=== PATIENT | male | born 1940 | race Caucasian/White ===

== ENCOUNTER 2016-05-22 19:57 | Inpatient (IN) | payer MEDICARE, BC ==
[~2016-05-22] VITALS: Ht 185.4 cm; Wt 74.0 kg
[~2016-05-22 19:57] MED LIST: ARICEPT10 MG PO; ASA325 MG PO; COREG DPS3.125 MG PO; DAPSONE25 MG PO; FLOMAX DPS0.4 MG PO; MAALOX DPS30 ML PO; MELATONIN5 M2 PO; MICRO-K DPS10 MEQ PO; NITROSTAT0.4 MG SL; NORVASC5 MG PO; PRAVACHOL20 MG PO; PRILOSEC40 MG PO; SYNTHROID25 MCG PO; SYNTHROID50 MCG PO; THERA1 EACH PO; TOPAMAX100 MG PO; TOPAMAX50 MG PO; TYLENOL DPS325 MG PO; VIBRAMYCIN-DPS100 M2 PO; VIMPAT50 MG PO; VITAMIN B-121000 MCG PO; ZYRTEC DPS10 MG PO
--- NOTE | 2016-05-23 01:06 | ER ---
ADMIT: 05/22/2016 RM/LOC: 519 [facility] MR#: [id number] [id number] [place], [place] [address] GWEN WILCOX [address] [place] [address] Emergency Room Report SEX: M AGE: 75 : 1940 DATE: 05/22/2016 CHIEF COMPLAINT: Weakness. HISTORY OF PRESENT ILLNESS: The patient is a 75-year-old male with dementia, CVA, with left-sided residual weakness, type 2 diabetes, valvular heart disease, abdominal aortic aneurysm with fistula and chronic E. coli sepsis on chronic dapsone therapy and multiple antibiotic allergies. Family states he is increasingly weak, bed ridden with cough. PAST MEDICAL HISTORY: ILLNESSES: Type 2 diabetes, valvular heart disease with aortic regurg, mitral regurg, hypertension, dementia, CVA with left-sided weakness, seizure disorder, hyperlipidemia, E. coli sepsis, chronic antibiotic therapy with dapsone, abdominal aortic repair and fistula, dementia, chronic kidney disease, obstructive sleep apnea, bladder cancer, hypothyroidism, GERD, chronic UTIs. OPERATIONS: Aortic aneurysm repair, right carotid endarterectomy, cholecystectomy, heart cath in 2002 with no interventions or abnormalities found. ALLERGIES: QUINOLONES, PERCOCET, PENICILLIN, CEPHALOSPORINS, CARBAPENEM. MEDICATIONS: Please see nurse's MAR. SOCIAL HISTORY: , retired, smokes half pack per day or less. No illicit drugs or alcohol. FAMILY HISTORY: Negative per chart review. REVIEW OF SYSTEMS: Unreliable due to dementia. PHYSICAL EXAMINATION: VITAL SIGNS: Temp 98.7, pulse 60, respirations 14, BP 143/59, SaO2 of 94%. GENERAL: Lethargic, slow to respond. Disheveled without jaundice or icterus. HEENT: Normocephalic. No evidence of epistaxis, rhinorrhea, or otorrhea. NECK: Supple without lymphadenopathy or thyromegaly. CHEST: Clear. Breath sounds equal without rales, rhonchi, or wheeze. HEART: Regular rate and rhythm without murmur, gallop, or edema. ABDOMEN: Soft, nontender, nondistended without mass or megaly. Bowel sounds active. BACK: No CVA tenderness. EXTREMITIES: No evidence of Homans sign, synovitis, or dermatitis. NEURO: EOMI, PERRLA. No evidence of drift, dysarthria, or ataxia. Gait not assessed. MENTAL STATUS: Alert, slow to respond, at times inappropriate. MEDICAL DECISION MAKING: Chest x-ray, no acute findings. CT head shows no acute findings. CT abdomen and pelvis shows likely basilar pneumonia. Vascular changes of aorta, but no acute findings. Hemoglobin 11.2, platelets ADMIT: 05/22/2016 RM/LOC: 519 [facility] MR#: [id number] [address] [id number] [place] [address] [address] [place] [address] Emergency Room Report SEX: M AGE: 75 : 1940 122, lactic 0.9. CRP 7.5, creatinine 1.6, baseline 1.1. BNP 1655, troponin 0.034, CK 461, procalcitonin 1.74. UA; 2+ WBC, less than 1 RBC, 1+ protein. EKG showed sinus bradycardia without ST-T or Q-wave change. CT head, no acute findings except possible left sphenoid and mastoid air-fluid levels. The patient was given 1 L bolus Azactam in emergency department. Notified Dr. Castillo of admission, who agreed and gave orders to nursing staff. DIAGNOSES: 1. Bibasilar pneumonia. 2. Multiple antibiotic allergies. 3. Acute kidney injury, likely prerenal azotemia. 4. Chronic sinusitis. 5. Dementia. RECOMMENDATION: Admit inpatient telemetry for Dr. Garcia. ADMISSION/DISCHARGE CONDITION: Fair. Patient is a full code. Wander Dang MD/ alejandro JOB #: [id number] CC: Nikita Garcia MD, Attending Physician Nikita Garcia MD, Family Physician Nikita Garcia MD
[2016-05-27] MEDS ORDERED: PRAVACHOL20 MG PO (17:07)
[2016-05-27] MEDS ORDERED: DESYREL-DPS50 MG PO (17:07)
[2016-05-27] MEDS ORDERED: NORVASC DPS10 MG PO (17:07)
[2016-05-27] MEDS ORDERED: DUONEB DPS3 ML IH (17:10)
[2016-05-27] MEDS ORDERED: DELTASONE DPS20 MG (17:10)
[2016-05-27] MEDS ORDERED: VIBRAMYCIN-DPS100 M2 PO (17:11)
[2016-05-27] MEDS ORDERED: HABITROL TP (17:11)
--- NOTE | 2016-06-01 10:19 | HP ---
ADMIT: 05/22/2016 RM/LOC: 519 [facility] MR#: [id number] [id number] [place], [place] [address] GWEN WILCOX [address] [place] [address] History and Physical SEX: M AGE: 75 : 1940 DATE OF SERVICE: CHIEF COMPLAINT: Weakness, increased shortness of breath, and cough. CLINICAL HISTORY: The patient is a very debilitated 75-year-old male with advanced vascular dementia with history of previous CVA, who has been residing at home with his attempting to provide his care. The patient was last hospitalized in May of 2015 after having had a seizure episode. At that time, it was felt that he needed mcc placement, but neither he or his would agree with mcc placement, and he has been at home, progressively deteriorating over the past year. The patient does have significant history of advanced COPD and continues to smoke. He has significant confusion and disorientation, and his struggles with his cares at home because of his advanced dementia. He has progressed to the point that he can no longer self transfer and his is not strong enough to transfer him. He also, in the last week to 10 days, has been coughing and having increased chest congestion. His has been ill with a respiratory infection and she feels that she gave her current respiratory infection to her . Because of his severe debility and inability to be cared for at home as well as his worsening cough and dyspnea, he was brought to the emergency room. He was evaluated in the ER for his weakness and debility. His workup in the ER included a CBC, which showed his white count to be normal at 8600, hemoglobin was 11.2. His sepsis studies were negative with a procalcitonin of 1.74 and a lactic acid of 0.9. A CT of his head showed chronic changes of small vessel disease and cerebrovascular disease as well as an old CVA. CT of the abdomen and pelvis showed no significant intraabdominal pathology, but he was noted to have bibasilar consolidations on his chest CT consistent with pneumonia. His chest x-ray did show marked changes of COPD with emphysematous changes and some fibrotic scarring in both bases, but pneumonia was noted on his CT scan. In view of his pneumonia with COPD exacerbation and marked debility, it was felt best to admit at this time. PAST MEDICAL HISTORY: The patient has history of significant vascular dementia. Other medical problems include: 1. Seizure disorder. 2. Multiple prior strokes. 3. Hypertension. 4. Chronic kidney disease. 5. Obstructive sleep apnea. 6. Prior bladder cancer. 7. History of recurring bouts of E. coli urosepsis related to chronic prostatitis. 8. Hypothyroidism. 9. Hyperlipidemia. 10.Chronic GERD. PAST SURGICAL HISTORY: The patient's previous surgical procedures include abdominal aortic aneurysm repair. He also has had carotid endarterectomy, cholecystectomy, upper GI endoscopy, and removal of a soft tissue tumor from ADMIT: 05/22/2016 RM/LOC: 519 [facility] MR#: [id number] [address] [address] [facility] [place] [address] History and Physical SEX: M AGE: 75 : 1940 his left anterior chest wall with subsequent chest wall defect and partial rib resection. The history is obtained from old records since the patient himself is entirely unreliable historian, and his is unavailable to provide any useful history. SOCIAL HISTORY: The patient is disabled. He has been living at home with his attempting to provide his care. The patient still smokes up to a pack a day of cigarettes. No longer consumes alcohol. No history of illicit drug use. FAMILY HISTORY: Unobtainable at this time. CURRENT MEDICATIONS: 1. Norvasc 5 mg daily. 2. Zyrtec 10 mg daily. 3. ASA 5 grains one daily. 4. Dapsone 25 mg daily. 5. Aricept 10 mg daily. 6. Multivitamin 1 daily. 7. Omeprazole 40 mg daily. 8. Potassium 10 mEq b.i.d. 9. Pravastatin 20 mg at bedtime. 10.Tamsulosin ER 0.4 mg daily at bedtime. 11.Levothyroxine 25 mcg daily. 12.Trazodone 50 mg half to one tablet at bedtime. 13.Vitamin B12 at 1000 mcg daily. 14.Topamax 50 mg b.i.d. ALLERGIES: HE IS ALLERGIC TO PENICILLIN AND CEPHALOSPORINS. HE HAS ALSO HAD REACTIONS TO CARBAPENEMS, QUINOLONES, OXYCODONE, AND CIPROFLOXACIN. REVIEW OF SYSTEMS: Unable to obtain any review of systems from the patient. CONSTITUTIONAL: The patient is minimally responsive, lethargic, but will awake but cannot respond to any questions appropriately. His family reports that he has been extremely weak and debilitated, unable to self transfer for the past several weeks. Up until a month or ago, he was transferring himself. No longer able to stand to use the bathroom, requires assistance with all ADLs. His and children have still been getting him up in his wheelchair. He has had increased difficulty with incontinence. ENT: No new complaints reported. PULMONARY: Very short of breath with any activity, marked dyspnea, chronic cough, long-standing history of COPD, also past history of obstructive sleep apnea. CARDIAC: No known coronary artery disease. No chest pain. No angina. GASTROINTESTINAL: History of chronic GERD. No recent vomiting. Some concern for aspiration, contributing to his current pneumonia. He has had no blood in ADMIT: 05/22/2016 RM/LOC: 519 [facility] MR#: [id number] [facility] [address] [address] [address] [place] [address] History and Physical SEX: M AGE: 75 : 1940 the stools. No melena or hematochezia. GENITOURINARY: History of chronic prostatitis, history of BPH, increased difficulty with urinary incontinence. MUSCULOSKELETAL: He is nonambulatory. He has residual left-sided weakness from his previous strokes. NEUROLOGIC: Severe neurocognitive impairment, marked dementia. INTEGUMENT: No rashes or areas of skin breakdown. HEMATOLOGIC: No significant history of anemia or clotting disorders. PHYSICAL EXAMINATION: VITAL SIGNS: At this time, his temp is 98.1, pulse is 50, respirations 16, blood pressure 165/76, O2 saturation 98% with oxygen on at 2 L. His current weight is 157 pounds. Note that his weight is down 30 pounds over the last year since he was last admitted in May of 2015. GENERAL: The patient is a very debilitated, frail, 75-year-old male, who appears significantly older than his stated age. He is very lethargic, slow to respond. His appearance is disheveled and unkempt. HEENT: His ears are clear. Pupils are equal and reactive. Sclerae nonicteric. Conjunctivae noninflamed. He has no significant nasal congestion. Oropharynx reveals dentition to be in poor repair. No oral lesions. The patient does have an active gag reflex. NECK: Supple without adenopathy. Thyroid not enlarged. I cannot appreciate any carotid bruits. Does have a scar on the right side of his neck from previous right carotid endarterectomy. LUNGS: His lungs today are noted to be diminished throughout. Breath sounds are coarse. He does have some upper airway rhonchi. No dullness to percussion. No wheezes noted. HEART: Noted to have a regular rhythm without murmur. He does have an anterior chest wall defect with a portion of a rib missing in his left upper chest. ABDOMEN: Soft, protuberant, nontender. Bowel sounds are present in all 4 quadrants. No masses or organomegaly. There is no pain response when I palpate his abdomen. Does have a scar on his abdomen from previous aortic aneurysm repair. GENITALIA: Normal male. Bilaterally descended testes. EXTREMITIES: Noted to have trace of pedal and ankle edema, changes of venous insufficiency. Some chronic stasis dermatitis. Negative Homans sign. No acutely inflamed joints. NEUROLOGIC: I cannot see any focal deficit. He is slow to respond. He has severe neurocognitive impairment. Some response is inappropriate to questions I ask. I cannot appreciate any new focal deficit. Just marked generalized weakness. LABORATORY AND X-RAY DATA: His pre-admission workup in the ER included CBC which showed white count of 8600, hemoglobin 11.2, hematocrit 33.5, platelets 122,000. Sodium 141, potassium 3.8, BUN 30, creatinine 1.6. Blood sugar 98. Procalcitonin 1.74. Lactic acid 0.9. His urinalysis was clear. Chest x-ray showed marked emphysematous changes, changes of COPD. CT of his abdomen showed no significant intraabdominal pathology, but does have significant ADMIT: 05/22/2016 RM/LOC: 519 [facility] MR#: [id number] [address] [id number] [place] [address] History and Physical SEX: M AGE: 75 : [address] of his head showed chronic ischemic changes and changes from his previous strokes. ASSESSMENT AT THE TIME OF ADMISSION: 1. Bibasilar pneumonia. 2. Acute chronic obstructive pulmonary disease exacerbation. 3. Chronic cerebrovascular disease. 4. Vascular dementia. 5. Marked debility secondary to his chronic obstructive pulmonary disease and dementia. 6. Hypertension. 7. Hyperlipidemia. 8. Seizure disorder. 9. Valvular heart disease with history of aortic regurgitation and mitral regurgitation. 10.Peripheral vascular disease. 11.Chronic kidney disease, stage II. 12.Obstructive sleep apnea. 13.Hypothyroidism. 14.Gastroesophageal reflux disease. 15.Benign prostatic hypertrophy with chronic prostatitis. 16.Multiple antibiotic allergies. PLAN: Plan is to admit the patient. We will treat aggressively for his pneumonia and COPD exacerbation. We will need mcc placement. Due to his severe debility, do not feel that he can return home. His is no longer able to provide his care at home. I have discussed this with his family, and will attempt to get [facility] involved to assist with post discharge planning. Nikita Garcia MD/ alejandro JOB #: [id number] CC: Nikita Garcia, Attending Physician Nikita Garcia, Family Physician
--- NOTE | 2016-06-29 15:56 | DS ---
ADMIT: 05/22/2016 RM/LOC: 519 [facility] MR#: [id number] [address] [place], [place] [address] GWEN WILCOX [address] [place] [address] General Discharge Summary SEX: M AGE: 75 : 1940 ADMISSION DATE: 05/22/2016 DISCHARGE DATE: 05/26/2016 ADMITTING DIAGNOSIS: As per history and physical. FINAL DIAGNOSES: 1. Acute chronic obstructive pulmonary disease exacerbation. 2. Acute pneumonia. 3. Acute renal insufficiency/acute kidney failure. 4. Chronic respiratory failure with hypoxia and hypercarbia. 5. Vascular dementia with behavioral disturbance. 6. Type 2 diabetes. 7. Cerebrovascular disease status post prior cerebrovascular accident. 8. Chronic sinusitis. 9. Valvular heart disease with mitral and aortic insufficiency. 10.Nicotine dependence/tobacco use disorder. 11.Seizure disorder. 12.Hyperlipidemia. 13.Obstructive sleep apnea. 14.Hypothyroidism. 15.Chronic gastroesophageal reflux disease. 16.Peripheral vascular disease. 17.Chronic kidney disease, stage 2. 18.Benign prostatic hypertrophy. 19.Chronic prostatitis. 20.Past history of bladder CA. 21.Chronic urinary tract infection. COMPLICATIONS: None. OPERATIONS: None. CLINICAL HISTORY: The patient is a very debilitated 75-year-old male with advanced vascular dementia, who has been living with his at home. His condition has deteriorated to the point that his can no longer care for him at home. Was brought to the emergency room because of weakness, inability to stand, and increased respiratory difficulty. Chest CT done in the ER showed bibasilar consolidations, and was felt to have pneumonia and acute COPD exacerbation as well as general decline in status. For further details of his clinical history as well as past medical history and pertinent findings on physical exam, please see dictated history and physical. LABORATORY AND X-RAY SUMMARY FROM THIS ADMISSION: His initial CBC showed a white count of 8600, hemoglobin 11.2. On his day of discharge, white count was 7600, hemoglobin 10.5, hematocrit 33. On admission, ProTime was 10.1, INR less than 1, PTT was normal. UA on admission showed negative nitrites, negative leukocyte esterase, no evidence of infection. Chemistry studies included on admission a sodium of 141, potassium 3.8, BUN was 30, with a creatinine of 1.6. At discharge, his sodium was 141, potassium 3.6, BUN 27, ADMIT: 05/22/2016 RM/LOC: 519 [facility] MR#: [id number] [id number] [place] [address] [address] [place] [address] General Discharge Summary SEX: M AGE: 75 : 1940 creatinine 1.2. Lactic acid on admission was 0.9. Blood cultures drawn on admission showed no growth. Urine culture showed no growth. Blood type was noted to be A positive. A head CT done in the ER because of his altered mental status showed changes of some chronic mastoiditis and sinusitis, no acute intracranial abnormality, changes of chronic cerebrovascular disease. A CT of the abdomen and pelvis showed bibasilar consolidations, no acute abnormality in the abdomen. Serial chest x-ray showed changes of COPD with some chronic interstitial scarring and changes in both lung bases. His EKG showed sinus bradycardia with prolonged QT interval. No acute changes. HOSPITAL COURSE: The patient was admitted with what was felt to be bibasilar pneumonia and COPD exacerbation. He was treated for his pneumonia with IV Azactam, and he was also given frequent nebulizer treatments and was placed on IV Solu-Medrol for his COPD exacerbation. PT and OT were asked to work with him on his strength and ambulation, at least try to get him to be able to stand for transfers. Speech Therapy saw him because of our concern for aspiration. The patient's hospital course was one of slow improvement in respiratory status. He was continued on IV antibiotics throughout the course of his hospitalization. His steroids were weaned. We ultimately transferred him to a chcf unit bed at [facility] on 05/26/2016 with continued PT, OT, and speech therapy at the intermediate. He was to continue on O2 continuously because of his severe COPD. MEDICATIONS: At dismissal were to include: 1. Aricept 10 mg daily. 2. ASA 5 grains one daily. 3. Dapsone 25 mg daily. 4. Prednisone 20 mg b.i.d., tapered over 15 days. 5. Trazodone 25 mg at bedtime. 6. Flomax 0.4 mg daily. 7. Micro-K 10 mEq b.i.d. 8. Norvasc 10 mg daily. 9. Pravachol 20 mg at bedtime. 10.Omeprazole 40 mg daily. 11.Levothyroxine 25 mcg daily. 12.Multivitamin 1 daily. 13.Topamax 50 mg b.i.d. 14.Vitamin B12 1000 mcg daily. 15.Zyrtec 10 mg daily. 16.DuoNeb via twin jet nebulizer q.i.d. 17.Habitrol patch 21 mg change daily. ADMIT: 05/22/2016 RM/LOC: 519 [facility] MR#: [id number] [address] [address] [place] [address] General Discharge Summary SEX: M AGE: 75 : 1940 18.Tylenol p.r.n. minor discomfort. 19.Milk of magnesia p.r.n. constipation. 20.Doxycycline 100 mg b.i.d. for 10 days. The patient is to be a no code, do not resuscitate at the intermediate. He is to continue on O2 continuously at night and p.r.n. during the day to keep his sats greater than 90%. CONDITION AT DISCHARGE: Stable and improved. PROGNOSIS: Long-term prognosis is poor in view of his age and the severity of his COPD as well as his cerebrovascular disease. Nikita Garcia MD/ alejandro JOB #: [id number] CC: Nikita Garcia MD, Attending Physician Nikita Garcia MD, Family Physician
== END 2016-05-26 11:50 | DRG 190 ==
LOC: ER 19:57 → 5MS 21:55
PROVIDERS: ADMIT Family Medicine
DX: J44.0 Chronic obstructive pulmonary disease with (acute) lower respiratory infection (principal); J18.9 Pneumonia, unspecified organism; N17.9 Acute kidney failure, unspecified; J96.11 Chronic respiratory failure with hypoxia; J96.12 Chronic respiratory failure with hypercapnia; F01.51 Vascular dementia, unspecified severity, with behavioral disturbance; I69.354 Hemiplegia and hemiparesis following cerebral infarction affecting left non-dominant side; E11.9 Type 2 diabetes mellitus without complications; J32.9 Chronic sinusitis, unspecified; Z23 Encounter for immunization; I12.9 Hypertensive chronic kidney disease with stage 1 through stage 4 chronic kidney disease, or unspecified chronic kidney disease; I08.0 Rheumatic disorders of both mitral and aortic valves; F17.210 Nicotine dependence, cigarettes, uncomplicated; G40.909 Epilepsy, unspecified, not intractable, without status epilepticus; E78.5 Hyperlipidemia, unspecified; G47.33 Obstructive sleep apnea (adult) (pediatric); E03.9 Hypothyroidism, unspecified; K21.9 Gastro-esophageal reflux disease without esophagitis; J44.1 Chronic obstructive pulmonary disease with (acute) exacerbation; I73.9 Peripheral vascular disease, unspecified; N18.2 Chronic kidney disease, stage 2 (mild); N40.0 Benign prostatic hyperplasia without lower urinary tract symptoms; N41.1 Chronic prostatitis; Z85.51 Personal history of malignant neoplasm of bladder; Z87.440 Personal history of urinary (tract) infections; Z66 Do not resuscitate